=== PATIENT | male | born 1970 | race Caucasian/White ===

== ENCOUNTER 2022-08-28 16:51 | Emergency (ER) | payer BC ==
[~2022-08-28] VITALS: Ht 185.4 cm; Wt 90.9 kg
[2022-08-28 17:20] VITALS: BP 135/93
[2022-08-28] MEDS ORDERED: PRED20TA PO (19:42)
== END 2022-08-28 19:53 | disposition home or self-care (01) ==
LOC: ER 16:52
DX: L25.9 Unspecified contact dermatitis, unspecified cause (principal)
CPT/HCPCS: 99283

== ENCOUNTER 2023-01-20 07:28 | Emergency (ER) | payer SELFPAY ==
[~2023-01-20] VITALS: Ht 185.4 cm; Wt 90.9 kg
[2023-01-20 07:33] VITALS: BP 128/99
[2023-01-20] MEDS ORDERED: LIDOCAINE 2%/EPI 1:100,000 inj. Multi-dose 20 ML VIAL IJ ONE (08:40)
[2023-01-20] MEDS ORDERED: LIDOcaine Viscous 15ml cup MM PRN (08:55)
[2023-01-20] MEDS ORDERED: clindamycin 600mg/D5W 50ml 50 ML IV ONE (10:20)
[2023-01-20] MEDS ORDERED: CLIN300C71 PO (11:19)
== END 2023-01-20 11:44 | disposition home or self-care (01) ==
LOC: ER 07:29
DX: K04.7 Periapical abscess without sinus (principal); Z79.899 Other long term (current) drug therapy
CPT/HCPCS: 41800; 96365; 99284; J3490